=== PATIENT | male | born 1980 | race Caucasian/White ===

== ENCOUNTER 2024-05-17 08:28 | Outpatient (CLI) | payer MEDICAID, SELFPAY | END 2024-05-17 08:29 | disposition home or self-care (01) | PROVIDERS: PCP Family Medicine; Visit Provider Family Medicine | DX: Z80.42 Family history of malignant neoplasm of prostate (principal); Z12.5 Encounter for screening for malignant neoplasm of prostate; Z13.220 Encounter for screening for lipoid disorders; Z13.1 Encounter for screening for diabetes mellitus | CPT/HCPCS: 80061; 82947; G0103 ==

== ENCOUNTER 2024-05-24 08:33 | Outpatient (CLI) | payer MEDICAID, SELFPAY ==
--- NOTE | 2024-05-24 09:26 | W.ANESCHARGE ---
Anesthesia Charges Start Date/Time Anesthesia Start Date: 05/24/24 Anesthesia Start Time: 09:14 Stop Date/Time Anesthesia Stop Date: 05/24/24 Anesthesia Stop Time: 09:33
--- NOTE | 2024-05-24 09:35 | W.ANESCHARGE ---
Anesthesia Charges Start Date/Time Anesthesia Start Date: 05/24/24 Anesthesia Start Time: 09:14 Stop Date/Time Anesthesia Stop Date: 05/24/24 Anesthesia Stop Time: 09:33
== END 2024-05-24 08:34 | disposition home or self-care (01) ==
LOC: OP CLINIC 08:35
PROVIDERS: PCP Family Medicine; Visit Provider Internal Medicine
DX: Z12.11 Encounter for screening for malignant neoplasm of colon (principal); D12.8 Benign neoplasm of rectum; K57.30 Diverticulosis of large intestine without perforation or abscess without bleeding; Z80.0 Family history of malignant neoplasm of digestive organs
CPT/HCPCS: 00811; 45385; 88305; J2704

== ENCOUNTER 2025-01-28 14:44 | Outpatient (CLI) | payer MEDICAID, SELFPAY | END 2025-01-28 14:45 | disposition home or self-care (01) | LOC: LKVREF 14:46 | PROVIDERS: PCP Family Medicine; Visit Provider Family Medicine | DX: R07.9 Chest pain, unspecified (principal) | CPT/HCPCS: 84484 ==

== ENCOUNTER 2025-02-24 12:45 | Outpatient (CLI) | payer MEDICAID, SELFPAY ==
--- NOTE | 2025-02-24 13:41 | P.STN_ITS ---
Stress Test Note Date Date Seen: 02/24/25 Date of test: 02/24/25 Providers Referring provider: Miguel Luna Primary care provider: Matt Watts Stress test physician: Susan Prasad Stress Test Note Stress test ordered: Stress Echo Indication for test: Episodes of chest pain at rest Stress test medicine: None Results discussion: Resting EKG: Sinus bradycardia, rate 56. Isolated flipped T-waves V1 without any ST segment change. Resting blood pressure: 120/82 Stress test: Patient is consented on ordered stress test and proceeds with a treadmill exercise stress echo following Reji protocol. Patient was able to exercise to 12 minutes, equivalent to 12.1 Mets . Patient accidentally did hit this. A button on the treadmill going from phase 3-4 and he was not at his target heart rate yet. We were able to quickly switch the protocol over to m anual and get the treadmill started again at phase 4 speed an incline. Patient completed the 12 minutes and then stopped due to meeting his target heart rate and exercise level. Patient had 1 episode of sharp substernal fleeting chest pain that lasted seconds at 8 minutes 33 seconds. No other symptoms noted throughout the stress test. There were no arrhythmias. He had a maximum heart rate of 169 beats per minute which was 111% of a calculated target heart rate of 151. Rate pressure product of 26,702. Patient had no further chest symptoms, heart rate and blood pressure recovered quickly. There is no diagnostic evidence of ischemia on the EKG. Impression: Subjectively negative, objectively negative EKG portion of this stress test. Note patient had a fleeting substernal sharp chest pain only lasting seconds, no EKG changes noted and this was so brief and did not worsen with increasing activity that I highly doubt it represents any coronary ischemia. Follow up suggested: Patient is discharged in stable condition. Will await the echo images to couple this for a full formal diagnostic. Patient does tell me that he is scheduled for calcium scan which I do agree with completing. If there is concern about aortic root dilation or ascending aorta dilation, full formal echo should be considered. Alternatively, if there is other family history for aneurysmal disease, CT protocol for aorta could be considered. I will leave this for him to discuss with his primary care provider.
[2025-02-24 13:49] VITALS: BP 136/78; PULSE 71; RESP 14
== END 2025-02-24 12:46 | disposition home or self-care (01) ==
LOC: STRESS 12:47
PROVIDERS: PCP Family Medicine; Visit Provider Family Medicine
DX: R07.9 Chest pain, unspecified (principal)
CPT/HCPCS: 93016; 93325; 93351

== ENCOUNTER 2025-05-11 09:25 | Outpatient (CLI) | payer MEDICAID, SELFPAY | END 2025-05-11 09:26 | disposition home or self-care (01) | LOC: NFLDREF 05-13 14:25 | PROVIDERS: PCP Family Medicine; Referring Provider Family Medicine; Visit Provider Family Medicine | DX: Z13.1 Encounter for screening for diabetes mellitus (principal); Z80.42 Family history of malignant neoplasm of prostate; Z13.6 Encounter for screening for cardiovascular disorders | CPT/HCPCS: 80061; 82947; G0103 ==